=== PATIENT | male | born 1990 | race Caucasian/White ===

== ENCOUNTER 2017-05-08 05:44 | Emergency (ER) | payer OTHER ==
[~2017-05-08 05:44] MED LIST: MESA1.2T
[2017-05-08] MEDS ORDERED: LIDOCAINE 1%, 20ML ONE (06:20)
[2017-05-08] MEDS ORDERED: LIDOCAINE 1%, 20ML INFIL ONE (06:30)
[2017-05-08] MEDS ORDERED: DIPH,PERTUSS(ACELL),TET VAC/PF 0.5 ML IM-VACC ONE ×2 (06:30→06:52)
[2017-05-08] MEDS ORDERED: BACITRACIN ZINC OINT 500U/GM, 0.9 GM ONE (07:38)
[2017-05-08 08:02] VITALS: BP 125/58
== END 2017-05-08 08:04 | disposition home or self-care (01) ==
LOC: ED 06:01
DX: S61.212A Laceration without foreign body of right middle finger without damage to nail, initial encounter (principal); S61.012A Laceration without foreign body of left thumb without damage to nail, initial encounter; S61.215A Laceration without foreign body of left ring finger without damage to nail, initial encounter; W25.XXXA Contact with sharp glass, initial encounter; Y93.89 Activity, other specified; Y92.009 Unspecified place in unspecified non-institutional (private) residence as the place of occurrence of the external cause; Y99.8 Other external cause status
CPT/HCPCS: 12004; 90471; 90715